=== PATIENT | female | born 1975 | race Caucasian/White ===

== ENCOUNTER → 2022-02-06 15:47 | Outpatient (CLI) | payer OTHER, SELFPAY ==
--- NOTE | 2022-02-06 16:02 | DI.CT.S_ITS ---
PROCEDURE: CT SINUS SCREEN WO CON INDICATIONS: FACIAL PAIN/ACUTE RECURRENT MAXILLARY SINUSITIS TECHNIQUE: Noncontrast 3.0 mm axial images acquired from the frontal sinuses to the mid-sella, with coronal and sagittal reformats. For radiation dose reduction, the following was used: automated exposure control, adjustment of mA and/or kV according to patient size. COMPARISON: None. FINDINGS: Image quality: Excellent. Maxillary Sinuses: No bony remodeling or destruction. Sinuses are clear. Ethmoid Air Cells: No bony remodeling or destruction. Sinuses are clear. Sphenoid Sinuses: No bony remodeling or destruction. Sinuses are clear. Incidental pneumatization of the optic struts. The optic nerve is well covered Frontal Sinuses: No bony remodeling or destruction. Sinuses are clear. Ostiomeatal Complexes: Ostiomeatal complexes are patent. No Melody cells. Miscellaneous: Canal wall down right mastoidectomy and tympanoplasty. There is focal rarefaction of the mastoid tegmentum on coronal image IMPRESSION: Right-sided mastoidectomy. Otherwise unremarkable. Approved by: Krishan Manzo M.D. on 02/06/2022 at 15:31
== END ==
PROVIDERS: Referring Provider Otolaryngology; Visit Provider Otolaryngology
DX: J01.01 Acute recurrent maxillary sinusitis (principal); J32.4 Chronic pansinusitis; R51.9 Headache, unspecified
CPT/HCPCS: 70486